=== PATIENT | female | born 1990 | race Two or more races ===

== ENCOUNTER → 2023-06-20 | Outpatient (CLI) | payer BC ==
[2023-06-20 14:40] LABS: Trichomonas vaginalis (AMP) NOT DETECTED (NEGATIVE)
[2023-06-20 15:03] LABS: GC DNA AMPLIFICATION NEGATIVE (NEGATIVE)
[2023-06-20 16:09] LABS: HEMATOCRIT 38.3 % (36.0-47.0); HEMOGLOBIN 12.7 g/dl (12.0-15.5); MEAN CORPUSCULAR HEMOGLOBIN 29.9 pg (27.0-33.0); MEAN CORPUSCULAR HGB CONC 33.2 g/dl (32.0-36.5); MEAN CORPUSCULAR VOLUME 90.1 fl (80.0-96.0); PLATELET COUNT, AUTOMATED 359 10^3/uL (150-450); RED BLOOD COUNT 4.25 10^6/uL (4.00-5.40); WHITE BLOOD COUNT 6.1 10^3/uL (4.0-10.0)
== END ==
LOC: M PLALAB 12:24
PROVIDERS: ATTEND Obstetrics & Gynecology
DX: N93.9 Abnormal uterine and vaginal bleeding, unspecified (principal)

== ENCOUNTER → 2023-07-11 | Outpatient (CLI) | payer BC ==
[2023-07-11 14:16] LABS: FREE T4 0.98 NG/DL (0.89-1.76); THYROID STIMULATING HORMONE 0.991 uIU/ML (0.55-4.78)
[2023-07-14 20:18] LABS: ANTI MULLERIAN HORMONE 2.17 ng/mL (0.36-10.07)
== END ==
LOC: EDUNIT# 07:00 → M WHC 07:01
PROVIDERS: ATTEND Obstetrics & Gynecology
DX: N93.9 Abnormal uterine and vaginal bleeding, unspecified (principal); Z31.9 Encounter for procreative management, unspecified; N88.8 Other specified noninflammatory disorders of cervix uteri